=== PATIENT | female | born 1990 | race Caucasian/White ===

== ENCOUNTER 2023-11-04 14:31 | Emergency (ER) | payer MEDICAID, SELFPAY ==
[2023-11-04 15:33] VITALS: BP 153/90; PULSE 69; RESP 18; TEMP 36.6; O2SAT 99; BMI 33.4
--- NOTE | 2023-11-04 16:12 | ED_ITS ---
HPI - General Adult General Chief complaint: Skin/Abscess/Foreign Body Stated complaint: allergic reaction to Gel nail wallisian Time Seen by Provider: 11/04/23 16:11 Source: patient Mode of arrival: ambulatory Limitations: no limitations History of Present Illness ED Provider: elis DE LA VEGA narrative: Patient is a 32-year-old female presenting to the ED with complaint of pruritic vesicular rash to distal tips of fingers since Wednesday. Patient reports that she had gel nail Slov[place] applied on Wednesday which she has had an allergic reaction to in the past. She woke up on Wednesday with the rash to her fingertips. States that any time she bumps the blisters they open and drain. Also has several small areas of similar rash to her face and left forearm. She states that she remove the gel nail wallisian with acetone on Wednesday and her symptoms initially felt better than reoccurred. History of similar reaction to gel nail wallisian in the past. complaint: rash Onset (ago): day(s) Location: face Quality: burning Associated symptoms: denies other symptoms Treatments prior to arrival: none Related Data Previous Rx's ?Medication ?Instructions ?Recorded doxycycline hyclate 100 mg capsule 100 mg PO BID #14 caps 11/04/23 prednisone 20 mg tablet 40 mg (2 x 20 mg) PO DAILY #10 tabs 11/04/23 Allergies Allergy/AdvReac Type Severity Reaction Status Date / Time No Known Allergies Allergy Verified 11/04/23 15:35 Review of Systems 2 Review of Systems: As per HPI. Yes all other systems are reviewed and are negative Constitutional: Constitutional: Reports as per HPI [facility] Social History Social History Smoked in Last 30 Days: No Use of substances other than those prescribed or required for medical reasons: No Advance Directives: No Advance Directives Information Provided: Yes Do you have a plan to hurt others: No Plan Physical Exam ED Vital Signs: Vital Signs - 24 hr 11/04/23 15:33 Temperature 97.9 F Pulse Rate 69 Respiratory Rate 18 Blood Pressure 153/90 H Pulse Oximetry 99 Oxygen Delivery Method Room Air BMI result Body Mass Index 33.4 Vital signs have been reviewed and appear to be correct. Blood pressure elevated. Heart rate normal. Respiratory rate normal. Temperature normal. Oxygen saturation normal. Const General: cooperative, healthy appearing and no acute distress Orientation/consciousness: oriented to person, oriented to place, oriented to time and patient oriented x3 Limitations: no limitations [facility] Head: Yes normocephalic and Yes atraumatic Ears: external ears normal General nose exam: Normal external nose present Face and sinus: Yes face symmetric Face images: 2 1. 1-2mm clustered vesicles on erythematous base 2. 1-2mm clustered vesicles on erythematous base Mouth: oropharynx normal and moist mucous membranes Throat: Yes uvula midline Eyes Pupils: Equal, round and reactive pupils present Neck Neck: Yes normal visual inspection and Yes supple Resp Effort & Inspection: normal respiratory effort and able to speak in complete sentences Auscultation: clear to auscultation bilaterally Cardio Rate: regular rate Rhythm: regular rhythm Heart sounds: S1 normal heart sound present and S2 normal heart sound present GI Palpation (GI): Soft to palpation and nontender Auscultation: normoactive bowel sounds General: Yes no CVA tenderness Back/Spine/Pelvis Back: no CVA tenderness Skin General skin exam: elasticity normal and turgor normal Neuro General: oriented to person, oriented to place, oriented to time, patient oriented x3, moves all extremities, no focal motor deficits and CN's II-XI intact bilaterally Cranial nerves: Yes Equal, round and reactive pupils present Cognition (Neuro): normal cognition Extrem General: Yes full ROM, Yes no pedal edema and Yes no calf tenderness Hand/finger images: 2 1. clustered clear vesicles on erythematous base to cuticle and proximal nail folds 2. clustered clear vesicles on erythematous base to cuticle and proximal nail folds 3. clustered clear vesicles on erythematous base to cuticle and proximal nail folds 4. clustered clear vesicles on erythematous base to cuticle and proximal nail folds 5. clustered clear vesicles on erythematous base to cuticle and proximal nail folds 6. clustered clear vesicles on erythematous base to cuticle and proximal nail folds 7. clustered clear vesicles on erythematous base to cuticle and proximal nail folds 8. clustered clear vesicles on erythematous base to cuticle and proximal nail folds 9. clustered clear vesicles on erythematous base to cuticle and proximal nail folds 10. clustered clear vesicles on erythematous base to cuticle and proximal nail folds Psych Mental Status: mental status grossly normal Affect: normal affect Thought process: Normal thought process present Medical Decision Making Medical Decision Making MDM Narrative: Patient is a 32-year-old female presenting to the ED with complaint of pruritic vesicular rash to distal tips of fingers since Wednesday. On exam patient is awake, A+Ox3, VS WNL, afebrile, normal neurological exam without focal deficits, physical exam findings as above. Given reported symptoms and physical exam findings, initial differential includes contact dermatitis, herpetic arianne, dyshidrotic eczema. Will treat patient with course of prednisone, doxycycline. Advised her to keep open areas covered with Band-Aids until symptoms improved. Instructed her to assess areas daily for signs of worsening infection and return if this occurs. Follow-up with PCP. Return precautions discussed. Patient verbalized understanding of and agreement with plan. Differential Diagnosis Differential Diagnoses: The differential diagnosis associated with the presentation includes As per MDM. External Record Review External record reviewed: Inpatient record, Office record and Outpatient record Prescription Management I considered prescription management with: Antibiotic and Other Discharge Plan Discharge Clinical Impression: Contact dermatitis Patient Disposition: Home, Self-Care Instructions: Contact Dermatitis (DC) Additional Instructions: You were evaluated in the emergency department today for a rash. You are being treated with a course of antibiotics, please complete the full course as prescribed. You are also being treated with a course of prednisone which is a steroid to decrease inflammation. We recommend keeping the areas of rash covered until they begin healing. You should assess the areas daily for signs of increasing redness, swelling, or thick yellow drainage and return if this occurs. Please follow-up with your primary care provider. In the future, avoid getting gel manicures. You can use an [id number] antihistamine such as cetirizine or loratadine as needed for itching. Return to the emergency department if you develop fever, increasing redness, redness spreading up your fingers towards your hand, thick yellow drainage, swelling or any other concerning symptoms. Prescriptions: New prednisone 20 mg tablet 40 mg PO DAILY Qty: 10 0RF doxycycline hyclate 100 mg capsule 100 mg PO BID Qty: 14 0RF Print Language: [place]
[2023-11-04 18:24] VITALS: BP 129/75; PULSE 65; RESP 16; TEMP 36.5; O2SAT 98
[2023-11-04 18:29] VITALS: BP 129/75; PULSE 65; RESP 18; TEMP 36.6; O2SAT 98
== END 2023-11-04 18:29 | disposition home or self-care (01) ==
PROVIDERS: Emergency Provider Emergency Medicine
DX: L25.8 Unspecified contact dermatitis due to other agents (principal); R21 Rash and other nonspecific skin eruption
CPT/HCPCS: 99283; 99284

== ENCOUNTER 2023-12-10 22:44 | Emergency (ER) | payer MEDICAID, SELFPAY ==
[2023-12-10 22:46] VITALS: BP 110/62; PULSE 102; O2SAT 97
[2023-12-10 23:01] VITALS: BP 124/61; PULSE 110; RESP 22; TEMP 36.8; O2SAT 97; BMI 40.8
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
[2023-12-10 23:40] LABS: MANUAL DIFF FLAG NO
[2023-12-10 23:41] LABS: Basophils Percent Auto 0.3 % (0-2); Eosinophils Percent Auto 0.2 % (0-4); Hematocrit 39.5 % (37.0-47.0); Hemoglobin 13.4 g/dl (12.0-16.0); Imm Gran Abs Auto 0.05 X10*3/uL (0.00-0.03); Imm Gran Pct Auto 0.4 % (0.0-0.4); Lymphocytes Absolute Auto 1.8 X10*3/uL (1.2-4.9); Lymphocytes Percent Auto 13.9 % (20-40); Mean Corpuscular HGB Conc 33.9 g/dl (31.0-35.0); Mean Corpuscular Hemoglobin 29.2 pg (27.0-33.0); Mean Corpuscular Volume 86.1 fL (80.0-98.0); Mean Platelet Volume 10.6 fL (9.4-12.3); Monocytes Absolute Auto 0.6 X10*3/uL (0.1-1.2); Monocytes Percent Auto 4.8 % (2-11); Neutrophils Absolute Auto 10.7 x10*3/uL (2.0-8.3); Neutrophils Percent Auto 80.4 % (45-73); Platelet Count 257 X10*3/uL (160-400); Red Blood Count 4.59 X10*6/uL (4.20-5.50); Red Cell Distribution Width 13.2 % (11.0-16.0); White Blood Count 13.3 X10*3/uL (4.8-10.8)
[2023-12-10 23:43] LABS: Appearance Urine Cloudy; Color Urine Yellow; Glucose Urine UA Negative (Negative); Leukocyte Esterase Urine Negative (Negative); Nitrite Urine Negative (Negative); PH 5.5 (5.0-9.0); Urine Blood Negative (Negative); Urine Ketones 15 mg/dL (Negative); Urine Protein Trace mg/dL (Neg-Trace)
[2023-12-11 00:06] LABS: Amphetamine Screen Urine Not Detected (Not Detect); Barbiturates, Urine Not Detected (Not Detect); Benzodiazepines Screen Urine Not Detected (Not Detect); Buprenorphine Scr Not Detected (Not Detect); Cannabinoid Screen Urine POSITIVE (Not Detect); Cocaine Screen Urine Not Detected (Not Detect); Fentanyl, urine Not Detected (Not Detect); Methadone Screen, Urine Not Detected (Not Detect); Opiate Screen Urine Not Detected (Not Detect); Oxycodone Screen Urine Not Detected (Not Detect); Phencyclidine Screen Urine Not Detected (Not Detect)
[2023-12-11 00:09] LABS: Alanine Aminotransferase 29 U/L (0-31); Albumin Level 4.6 g/dL (3.5-5.0); Alkaline Phosphatase 86 U/L (39-117); Anion Gap 15 (12-20); Aspartate Amino Transferase 24 U/L (5-31); Bilirubin Total 0.2 mg/dL (0.0-1.0); Blood Urea Nitrogen 11 mg/dL (9-16); Calcium 9.9 mg/dL (8.4-10.2); Carbon Dioxide 22 mmol/L (22-29); Chloride 108 mmol/L (96-108); Creatinine Clr Calc Pharmacy 112.4; Estimated Glomerular Filt Rate > 60; Ethanol < 10 mg/dL; Glucose Random 112 mg/dL (60-115); Potassium 3.8 mmol/L (3.3-5.1); Sodium 141 mmol/L (135-145); Total Protein 7.6 g/dL (6.5-8.0)
[2023-12-11 00:11] LABS: HCG Quantitative < 2 mIU/mL
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
[2023-12-11] MEDS: Ondansetron ODT 4 MG TAB.RAPDIS TRANSLINGU (04:32)
[2023-12-11 06:40] VITALS: BP 138/75; PULSE 86; RESP 18; TEMP 36.6; O2SAT 97
--- NOTE | 2023-12-11 07:25 | PC.NURSE ---
Assumed care of patient at 0645. Patient is observed resting quietly in their bed. No signs of distress observed and breathing is even and unlabored.
[2023-12-11 10:07] VITALS: BP 138/75; PULSE 86; RESP 18; TEMP 36.6; O2SAT 97
== END 2023-12-11 10:17 | disposition home or self-care (01) ==
PROVIDERS: Emergency Provider Emergency Medicine
DX: S50.812A Abrasion of left forearm, initial encounter (principal); X78.8XXA Intentional self-harm by other sharp object, initial encounter; R45.851 Suicidal ideations; F12.90 Cannabis use, unspecified, uncomplicated; Y93.89 Activity, other specified; Y92.019 Unspecified place in single-family (private) house as the place of occurrence of the external cause; Y99.9 Unspecified external cause status
CPT/HCPCS: 36415; 80053; 80307; 81003; 84702; 85025; 99284; 99285; S9485